=== PATIENT | female | born 1985 | race American Indian/Alaskan Native ===

== ENCOUNTER 2020-09-14 18:21 | Emergency (ER) | payer MEDICAID ==
[2020-09-14] MEDS ORDERED: ONDANSETRON 4 MG ODT TAB PO ONE (19:42)
--- NOTE | 2020-09-14 20:13 | Event Note ---
ED Screening Note Date of service: 09/14/20 Time: 20:10 ED Screening Note: Pt c/o vomiting and abdominal pain for the past few days states being evaluated for possible abdominal [id number] a bopsy 08/14/20 has severe kidney disease denies cough, SOB or CP last bowel movement 2 days ago This initial assessment/diagnostic orders/clinical plan/treatment(s) is/are subject to change based on patients health status, clinical progression and re- assessment by fellow clinical providers in the ED. Further treatment and workup at subsequent clinical providers discretion. Patient/guardian urged not to elope from the ED as their condition may be serious if not clinically assessed and managed. Initial orders include: labs CT
--- NOTE | 2020-09-14 20:15 | Event Note ---
ED Screening Note ED Screening Note: constipation for three days ago states she can pass gas +n/v yesterday states she has a mass on her bladder, had a biopsy 08/14/2020 no fever PMHx nephrostomy tube secondary to blockage no allergies to meds This initial assessment/diagnostic orders/clinical plan/treatment(s) is/are subject to change based on patients health status, clinical progression and re- assessment by fellow clinical providers in the ED. Further treatment and workup at subsequent clinical providers discretion. Patient/guardian urged not to elope from the ED as their condition may be serious if not clinically assessed and managed. Initial orders include: labs, UA, XR
[2020-09-14] MEDS ORDERED: MORPHINE 4 MG/1 ML INJ IV ONE ×2 (21:05→22:57)
--- NOTE | 2020-09-14 21:05 | Emergency Department Report ---
HPI - General Chief Complaint: Nausea/Vomiting/Diarrhea Time Seen by Provider: 09/14/20 20:13 - HPI HPI: This is a 34-year-old female presents to the emergency department with a complaint of left-sided pelvic and lower quadrant abdominal pain, nausea with vomiting and constipation. Patient was admitted here from 08/25 and discharged on 09/02. During that admission the patient was found to have a left-sided pelvic mass that was causing bilateral hydroureteronephrosis. The patient had nephrostomy tubes placed and had a CT guided biopsy of the mass. The patient was also found to have acute kidney injury with renal failure from the hydroureteronephrosis, but the patient is not dialysis dependent at this time. The patient has made an appointment with the necessary specialists but has not yet been able to see anybody except for an [facility] ST[facility]LIST. She says that she has been having a 2-day history of nausea with vomiting, 3-day history of constipation, a nd a 3-day history of increased left-sided abdominal/pelvic pain with the patient has the known mass. She denies any fever, vaginal discharge, chest pain, shortness of breath. 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, HPV - Surgical History Additional Surgical History: - Social History Smoking Status: Former Smoker - Medications Home Medications: Home Medications Medication Instructions Recorded Confirmed Last Taken Type ALPRAZolam [Xanax TAB] 0.5 mg PO Q8H PRN #20 tablet 09/02/20 Unknown Rx Famotidine [Pepcid] 10 mg PO BID #60 tablet 09/02/20 Unknown Rx Lactulose [Cephulac] 20 gm PO QDAY PRN #30 oral.liqd 09/02/20 Unknown Rx Metoprolol [Lopressor TAB] 100 mg PO BID #60 tablet 09/02/20 Unknown Rx oxyCODONE /ACETAMINOPHEN [Percocet 1 tab PO Q6H PRN #12 tablet 09/02/20 Unknown Rx 5/325 mg] Docusate Sodium [Colace] 100 mg PO BID PRN #20 capsule 09/14/20 Unknown Rx HYDROcodone/APAP 5-325 [Cerrillos 1 each PO Q6HR PRN #10 tablet 09/14/20 Unknown Rx 5/325] Sulfamethoxazole/Trimethoprim 1 each PO BID #14 tablet 09/14/20 Unknown Rx [Bactrim DS TAB] ED Review of Systems ROS: Stated complaint: CONSIPATED/CANT KEEP NOTHING DOWN Other details as noted in HPI Comment: All other systems reviewed and negative Constitutional: denies: chills, fever Eyes: denies: eye pain, vision change ENT: denies: ear pain, throat pain Respiratory: denies: cough, shortness of breath Cardiovascular: denies: chest pain, palpitations Gastrointestinal: abdominal pain, nausea, vomiting, constipation Genitourinary: denies: dysuria, discharge Musculoskeletal: back pain. denies: joint swelling Skin: denies: rash, lesions Neurological: denies: headache, weakness Physical Exam - Physical Exam Vital Signs: Vital Signs 09/14/20 19:47 Temperature 99.1 F Pulse Rate 117 H Respiratory 20 Rate Blood Pressure 139/83 O2 Sat by Pulse 100 Oximetry Physical Exam: GENERAL: The patient is well-developed well-nourished. HENT: Normocephalic. Atraumatic. Patient has moist mucous membranes. EYES: Extraocular motions are intact. NECK: Supple. Trachea is midline. CHEST/LUNGS: Clear to auscultation. There is no respiratory distress noted. HEART/CARDIOVASCULAR: Regular. There is mild tachycardia. There is no murmur. ABDOMEN: Abdomen is soft. There is left-sided abdominal tenderness to palpation. No guarding. Patient has normal bowel sounds. Bilateral nephrostomy tubes in place. SKIN: Skin is warm and dry. NEURO: The patient is awake, alert, and oriented. The patient is cooperative. The patient has no focal neurologic deficits. Normal speech. MUSCULOSKELETAL: There is no tenderness or deformity. There is no limitation range of motion. ED Course Vital Signs 09/14/20 19:47 Temperature 99.1 F Pulse Rate 117 H Respiratory 20 Rate Blood Pressure 139/83 O2 Sat by Pulse 100 Oximetry - EJ/Peripheral Line Neck R Time Out Performed: Yes Indications: nurses unable to establis Skin Cleansed in Sterile Fashion: Yes Size: 22 Dressing Placed: Tegaderm, tape Patient Tolerated Procedure: well ED Medical Decision Making - Lab Data Result diagrams: 09/14/20 21:11 09/14/20 21:11 Lab Results 02/09/14/20 09/14/20 Range/Units 21:11 21:11 21:11 WBC 13.8 H (4.5-11.0) K/mm3 RBC 2.55 L (3.65-5.03) M/mm3 Hgb 8.4 L (10.1-14.3) gm/dl Hct 25.4 L (30.3-42.9) % MCV 99 H (79-97) fl MCH 33 H (28-32) pg MCHC 33 (30-34) % RDW 13.3 (13.2-15.2) % Plt Count 290 (140-440) K/mm3 Lymph % (Auto) 4.7 L (13.4-35.0) % [place] % (Auto) 5.2 (0.0-7.3) % Eos % (Auto) 0.2 (0.0-4.3) % Baso % (Auto) 0.2 (0.0-1.8) % Lymph # (Auto) 0.7 L (1.2-5.4) K/mm3 [place] # (Auto) 0.7 (0.0-0.8) K/mm3 Eos # (Auto) 0.0 (0.0-0.4) K/mm3 Baso # (Auto) 0.0 (0.0-0.1) K/mm3 Seg Neutrophils % 89.7 H (40.0-70.0) % Seg Neutrophils # 12.3 H (1.8-7.7) K/mm3 Sodium 129 L (137-145) mmol/L Potassium 5.4 H (3.6-5.0) mmol/L Chloride 94.3 L (98-107) mmol/L Carbon Dioxide 15 L (22-30) mmol/L Anion Gap 25 mmol/L BUN 43 H (7-17) mg/dL Creatinine 6.4 H (0.6-1.2) mg/dL Estimated GFR 9 ml/min BUN/Creatinine Ratio 7 % Glucose 93 (65-100) mg/dL Calcium 9.3 (8.4-10.2) mg/dL Total Bilirubin 0.40 (0.1-1.2) mg/dL AST 14 (5-40) units/L ALT < 5 L (7-56) units/L Alkaline Phosphatase 61 (35-129) units/L Total Protein 8.0 (6.3-8.2) g/dL Albumin 4.3 (3.9-5) g/dL Albumin/Globulin Ratio 1.2 % Lipase 79 H (13-60) units/L HCG, Qual Negative (Negative) Urine Color (Yellow) Urine Turbidity (Clear) Urine pH (5.0-7.0) Ur Specific [place] (1.003-1.030) Urine Protein (Negative) mg/dL Urine Glucose (UA) (Negative) mg/dL Urine Ketones (Negative) mg/dL Urine Blood (Negative) Urine Nitrite (Negative) Urine Bilirubin (Negative) Urine Urobilinogen (<2.0) mg/dL Ur Leukocyte Esterase (Negative) Urine WBC (Auto) (0.0-6.0) /HPF Urine RBC (Auto) (0.0-6.0) /HPF Urine Bacteria (Auto) (Negative) /HPF Urine Mucus /HPF 09/14/20 Range/Units Unknown WBC (4.5-11.0) K/mm3 RBC (3.65-5.03) M/mm3 Hgb (10.1-14.3) gm/dl Hct (30.3-42.9) % MCV (79-97) fl MCH (28-32) pg MCHC (30-34) % RDW (13.2-15.2) % Plt Count (140-440) K/mm3 Lymph % (Auto) (13.4-35.0) % [place] % (Auto) (0.0-7.3) % Eos % (Auto) (0.0-4.3) % Baso % (Auto) (0.0-1.8) % Lymph # (Auto) (1.2-5.4) K/mm3 [place] # (Auto) (0.0-0.8) K/mm3 Eos # (Auto) (0.0-0.4) K/mm3 Baso # (Auto) (0.0-0.1) K/mm3 Seg Neutrophils % (40.0-70.0) % Seg Neutrophils # (1.8-7.7) K/mm3 Sodium (137-145) mmol/L Potassium (3.6-5.0) mmol/L Chloride (98-107) mmol/L Carbon Dioxide (22-30) mmol/L Anion Gap mmol/L BUN (7-17) mg/dL Creatinine (0.6-1.2) mg/dL Estimated GFR ml/min BUN/Creatinine Ratio % Glucose (65-100) mg/dL Calcium (8.4-10.2) mg/dL Total Bilirubin (0.1-1.2) mg/dL AST (5-40) units/L ALT (7-56) units/L Alkaline Phosphatase (35-129) units/L Total Protein (6.3-8.2) g/dL Albumin (3.9-5) g/dL Albumin/Globulin Ratio % Lipase (13-60) units/L HCG, Qual (Negative) Urine Color Yellow (Yellow) Urine Turbidity Slightly-cloudy (Clear) Urine pH 7.0 (5.0-7.0) Ur Specific [place] 1.009 (1.003-1.030) Urine Protein >500 (Negative) mg/dL Urine Glucose (UA) Neg (Negative) mg/dL Urine Ketones Neg (Negative) mg/dL Urine Blood Sm (Negative) Urine Nitrite Neg (Negative) Urine Bilirubin Neg (Negative) Urine Urobilinogen < 2.0 (<2.0) mg/dL Ur Leukocyte Esterase Lg (Negative) Urine WBC (Auto) 46.0 H (0.0-6.0) /HPF Urine RBC (Auto) 15.0 (0.0-6.0) /HPF Urine Bacteria (Auto) 1+ (Negative) /HPF Urine Mucus Few /HPF - Radiology Data Radiology results: report reviewed, image reviewed interpreted by me: Abdominal x-ray shows nonspecific nonobstructive bowel gas. There is some increased stool volume. No free air. CT ABDOMEN AND PELVIS WITHOUT CONTRAST INDICATION / CLINICAL INFORMATION: Left- sided abdominal and pelvic pain, hx of mass. TECHNIQUE: Axial CT images were obtained through the abdomen and pelvis without IV contrast. All CT scans at this location are performed using CT dose reduction for ALARA by means of automa wei exposure control. COMPARISON: CT scan dated 08/25/2020 FINDINGS: LOWER CHEST: No significant abnormality. LIVER: No significant abnormality. GALLBLADDER: Cholelithiasis BILE DUCTS: No significant abnormality. PANCREAS: No significant abnormality. SPLEEN: No significant abnormality. ADRENALS: No significant abnormality. RIGHT KIDNEY and URETER: There is a right nephrostomy tube with the pigtail at the level the renal pelvis. There has been resolution of hydronephrosis on the right. LEFT KIDNEY and URETER: There is a left nephrostomy tube with pigtail at the level the renal pelvis. There has been interval decrease in hydronephrosis on the left. STOMACH and SMALL BOWEL: No significant abnormality. COLON: No significant abnormality. APPENDIX: No significant abnormality. PERITONEUM: No free fluid. No free air. No fluid collection. LYMPH NODES: Previously noted adenopathy described on the prior CT scan persists and appears unchanged. AORTA and ARTERIES: No significant abnormality. IVC and VEINS: No significant abnormality. URINARY BLADDER: Urinary bladder is collapsed. There is a small amount of air in the urinary bladder which is presumably from prior catheterization. REPRODUCTIVE ORGANS: There is a mass lesion in the left adnexa along the left pelvic sidewall. This was described previously. This appears to be separate from the ovary. This may represent an enlarged node. This measures approximately 5.5 cm and is unchanged. ADDITIONAL FINDINGS: None. SKELETAL SYSTEM: No acute abnormality IMPRESSION: 1. There has been interval placement of bilateral nephrostomy tubes. Hyd ronephrosis on the left is improved but has not entirely resolved following nephrostomy placement. Hydronephrosis on the right has resolved following nephrostomy tube placement. 2. Previously noted adenopathy in the previously noted left pelvic mass appear unchanged. - Medical Decision Making This patient presents with left-sided abdominal pain, nausea and vomiting, and constipation. She does have some reproducible left middle to lower quadrant abdominal pain to palpation but no guarding. The patient has bilateral nephrostomy tubes in place that appear to be draining. Patient's labs shows a mild leukocytosis of about 13,000, anemia with a hemoglobin of about 8, end-stage renal disease with a GFR of 9, mild hyperkalemia. All this appears consistent with her most recent admission at the time of her discharge. The patient does appear to have a mild urinary tract infection. An IV was placed and the patient was given some IV fluid resuscitation, IV analgesia and IV antiemetics. Abdominal x-ray shows nonspecific nonobstructive bowel gas and some increased stool volume. CT scan of the abdomen and pelvis without contrast shows the previously described pelvic mass, resolution of the right-sided hydronephrosis and improvement in the left-sided hydronephrosis. No sign of any bowel obstruction, intra-abdominal or pelvic infection. We took a look at the left- sided nephrostomy tube and it appeared slightly kinked. Once we fixed this the drainage improved and I suspect the hydronephrosis will resolve. The patient was reevaluated multiple times for multiple hours and is feeling greatly improved. Prior to discharge her pain scale was listed as 0 out of 10. The patient had some tachycardia on presentation that has since resolved. She has been afebrile. The patient has outpatient follow-up with FRAME STYLIST, nephrology, and urology. She has once again been given an outpatient referral for hematology/oncology. The patient has been placed on Colace for the constipation. She has been given a prescription for antibiotics for the UTI and a small amount of pain medication. She will return to the emergency department with any worsening of her symptoms or with any acute distress. Critical Care Time: No Critical care attestation.: If time is entered above; I have spent that time in minutes in the direct care of this critically ill patient, excluding procedure time. ED Disposition Clinical Impression: End stage kidney disease, Pelvic mass in female, Hyponatremia Abdominal pain Qualifiers: Abdominal location: unspecified location Qualified Code(s): R10.9 - Unspecified abdominal pain UTI (urinary tract infection) Qualifiers: Urinary tract infection type: acute cystitis Hematuria presence: without hematuria Qualified Code(s): N30.00 - Acute cystitis without hematuria Disposition: TO HOME OR SELFCARE Is pt being admited?: No Condition: Stable Instructions: Abdominal Pain, Adult, Urinary Tract Infection, Adult, Pelvic Mass, Female, End-Stage Kidney Disease Additional Instructions: Please follow-up with your primary care physician, monotype keyboard operator, urologist, oncologist, and FRAME [facility]LIST. Take all medications as prescribed. You have been prescribed a medication that is sedating and therefore should not be taken prior to driving, working, and responsible for children and in no way should be mixed with alcohol of any quantity. Return to the emergency department with any worsening of your symptoms, new or concerning symptoms not addressed during this current emergency department visit, or with any acute distress. Prescriptions: Sulfamethoxazole/Trimethoprim [Bactrim DS TAB] 1 each PO BID #14 tablet Docusate Sodium [Colace] 100 mg PO BID PRN #20 capsule PRN Reason: Constipation HYDROcodone/APAP 5-325 [Cerrillos 5/325] 1 each PO Q6HR PRN #10 tablet PRN Reason: Pain Referrals: PRIMARY CARE, [Primary Care Provider] - 2-3 Days ENRIQUE NIETO MD [Staff Physician] - 2-3 Days ALDA BOJORQUEZ MD [Staff Physician] - 2-3 Days NORMA VILLELA MD [Staff Physician] - 2-3 Days Time of Disposition: 23:37
[2020-09-14] MEDS ORDERED: ONDANSETRON 4 MG/2 ML INJ IV ONE (21:22)
[2020-09-14 21:30] LABS: Basophils % (Auto) 0.2 % (0.0-1.8); Eosinophils % (Auto) 0.2 % (0.0-4.3); Hematocrit 25.4 % (30.3-42.9); Hemoglobin 8.4 gm/dl (10.1-14.3); Lymphocytes # (Auto) 0.7 K/mm3 (1.2-5.4); Lymphocytes % (Auto) 4.7 % (13.4-35.0); Mean Corpuscular HGB Conc 33 % (30-34); Mean Corpuscular Volume 99 fl (79-97); Monocytes # (Auto) 0.7 K/mm3 (0.0-0.8); Monocytes % (Auto) 5.2 % (0.0-7.3); Platelet Count 290 K/mm3 (140-440); Red Blood Count 2.55 M/mm3 (3.65-5.03); Red Cell Distribution Width 13.3 % (13.2-15.2)
[2020-09-14 21:43] LABS: Albumin 4.3 g/dL (3.9-5); Blood Urea Nitrogen 43 mg/dL (7-17); Calcium 9.3 mg/dL (8.4-10.2); Hemolysis Index 33
[2020-09-14 21:44] LABS: Alanine Aminotransferase < 5 units/L (7-56); BUN/Creatinine Ratio 7
[2020-09-14] MEDS ORDERED: SODIUM CHLORIDE 0.9% 500 ML 500 ML IV ONE (21:53)
[2020-09-14 22:02] LABS: Bacteria,Urine 1+ /HPF (Negative); Bilirubin,Urine NEG (Negative); Blood,Urine SM (Negative); Color,Urine Yellow (Yellow); Mucus,Urine FEW /HPF; Urobilinogen,Urine < 2.0 mg/dL (<2.0)
[2020-09-14 22:03] LABS: Protein,Urine >500 mg/dL (Negative)
[2020-09-14] MEDS ORDERED: cefTRIAXone/NS 1 GM/50 ML 1 GM/50 ML BAG IV ONE (22:07)
--- NOTE | 2020-09-14 22:48 | Cat Scan Report ---
CT ABDOMEN AND PELVIS WITHOUT CONTRAST INDICATION / CLINICAL INFORMATION: Left-sided abdominal and pelvic pain, hx of mass. TECHNIQUE: Axial CT images were obtained through the abdomen and pelvis without IV contrast. All CT scans at [facility] location are performed using CT dose reduction for ALARA by means of automated exposure control. COMPARISON: CT scan dated 08/25/2020 FINDINGS: LOWER CHEST: No significant abnormality. LIVER: No significant abnormality. GALLBLADDER: Cholelithiasis BILE DUCTS: No significant abnormality. PANCREAS: No significant abnormality. SPLEEN: No significant abnormality. ADRENALS: No significant abnormality. RIGHT KIDNEY and URETER: There is a right nephrostomy tube with the pigtail at the level the renal pe lvis. There has been resolution of hydronephrosis on the right. LEFT KIDNEY and URETER: There is a left nephrostomy tube with pigtail at the level the renal pelvis. There has been interval decrease in hydronephrosis on the left. STOMACH and SMALL BOWEL: No significant abnormality. COLON: No significant abnormality. APPENDIX: No significant abnormality. PERITONEUM: No free fluid. No free air. No fluid collection. LYMPH NODES: Previously noted adenopathy described on the prior CT scan persists and appears unchange d. AORTA and ARTERIES: No significant abnormality. IVC and VEINS: No significant abnormality. URINARY BLADDER: Urinary bladder is collapsed. There is a small amount of air in the urinary bladder which is presumably from prior catheterization. REPRODUCTIVE ORGANS: There is a mass lesion in the left adnexa along the left pelvic sidewall. This w as described previously. This appears to be separate from the ovary. This may represent an enlarged n ode. This measures approximately 5.5 cm and is unchanged. ADDITIONAL FINDINGS: None. SKELETAL SYSTEM: No acute abnormality IMPRESSION: 1. There has been interval placement of bilateral nephrostomy tubes. Hydronephrosis on the left is im proved but has not entirely resolved following nephrostomy placement. Hydronephrosis on the right has resolved following nephrostomy tube placement. 2. Previously noted adenopathy in the previously noted left pelvic mass appear unchanged. Signer Name: Bruce Torres MD Signed: 09/14/2020 10:43 PM Workstation Name: [id number]
--- NOTE | 2020-09-14 22:49 | XRay Report ---
ABDOMEN 1 VIEW(S) INDICATION / CLINICAL INFORMATION: constipation. COMPARISON: CT scan dated 09/14/2020 FINDINGS: TUBES / LINES: There are bilateral nephrostomy tubes. BOWEL GAS PATTERN/EXTRALUMINAL GAS: No significant abnormality. No pneumatosis or secondary signs of free air. ADDITIONAL FINDINGS: No significant additional findings. IMPRESSION: 1. No acute abnormality. Bilateral nephrostomy tubes are noted. Signer Name: Bruce Torres MD Signed: 09/14/2020 10:44 PM Workstation Name: [id number]
[2020-09-14 23:17] VITALS: BP 117/76
== END 2020-09-15 00:16 | disposition home or self-care (01) ==
LOC: ED 18:21
DX: N18.6 End stage renal disease (principal); I12.0 Hypertensive chronic kidney disease with stage 5 chronic kidney disease or end stage renal disease; N39.0 Urinary tract infection, site not specified; E87.1 Hypo-osmolality and hyponatremia; R19.00 Intra-abdominal and pelvic swelling, mass and lump, unspecified site; Z87.891 Personal history of nicotine dependence; Z98.890 Other specified postprocedural states; Z79.899 Other long term (current) drug therapy
CPT/HCPCS: 36415; 36556; 74019; 74176; 80053; 81001; 83690; 84703; 85025; 87086; 96365; 96375; 96376; 99284; J0696; J2270; J2405; J7040; Q0162